=== PATIENT | female | born 1955 | race Hispanic/Latino ===

== ENCOUNTER → 2017-12-07 | Day surgery (SDC) | payer BC ==
[2017-12-04 14:59] LABS: BASOPHILS % 0.7 % (0.0-1.0); EOSINOPHILS # (AUTO) 0.2 (0.0-0.4); EOSINOPHILS % 3.7 % (0.0-6.0); HEMATOCRIT 34.1 % (34.2-44.1); HEMOGLOBIN 12.1 g/dL (12.0-16.0); LYMPHOCYTES # (AUTO) 1.2 (1.0-3.2); LYMPHOCYTES % 26.7 % (18.0-39.1); MEAN CORPUSCULAR HEMOGLOBIN 31.1 pg (28-32); MEAN CORPUSCULAR HGB CONC 35.5 g/dL (31-35); MEAN CORPUSCULAR VOLUME 87.7 fL (81-99); MONOCYTES # (AUTO) 0.4 (0.2-0.8); MONOCYTES % 8.3 % (4.4-11.3); NEUTROPHILS # (AUTO) 2.6 (2.1-6.9); NEUTROPHILS % 60.1 % (38.7-80.0); PLATELET COUNT 190 x10e3/uL (140-360); RED BLOOD COUNT 3.89 x10e6/uL (3.6-5.1); RED CELL DISTRIBUTION WIDTH 12.5 % (11.7-14.4)
[2017-12-04 15:10] LABS: INR 0.92; PROTHROMBIN TIME 13.2 seconds (11.9-14.5)
[2017-12-04 15:11] LABS: PARTIAL THROMBOPLASTIN TIME 25.8 seconds (23.8-35.5)
[2017-12-04 15:18] LABS: ALANINE AMINOTRANSFERASE 35 IU/L (0-55); ALBUMIN 4.5 g/dL (3.5-5.0); ALBUMIN/GLOBULIN RATIO 1.5 (0.8-2.0); ALKALINE PHOSPHATASE 50 IU/L (40-150); BLOOD UREA NITROGEN 15 mg/dL (7-26); BUN/CREATININE RATIO 16 (6-25); CALCIUM 10.1 mg/dL (8.4-10.2); CARBON DIOXIDE 27 mmol/L (22-29); CHLORIDE 104 mmol/L (98-107); CHOL/HDL RATIO 3.7 (3.0-3.6); CHOLESTEROL 171 MD/DL (0-199); CREATININE, SERUM 0.94 mg/dL (0.57-1.11); EST GLOMERULAR FILTRATION RATE > 60 ML/MIN (60-); GLUCOSE 106 mg/dL (74-118); HDL CHOLESTEROL 46 MG/DL (40-60); LDL CHOLESTEROL 96 MG/DL (60-130); SODIUM 142 mmol/L (136-145); TRIGLYCERIDES 143 MG/DL (0-149)
[2017-12-04 15:38] LABS: THYROID STIMULATING HORMONE 2.919 uIU/mL (0.350-4.940)
[~2017-12-07] VITALS: Ht 157.5 cm; Wt 61.2 kg
[2017-12-07] VITALS (21 sets, daily range): BP systolic 90–135; BP diastolic 62–83
[~2017-12-07] MED LIST: AMLODIPINE BESY10 MG PO; ASPIR 8181 MG PO; ASPIRIN 325 MG TAB ONE; ATROPINE SULFATE 0.1 MG/ML 10ML SYR ONE; CLOPIDOGREL75 MG PO; FENOFIBRATE145 MG PO; FENTANYL CITRATE/PF 100MCG/2 ML INJ ONE; FERROUS SULFAT325 MG PO; HEPARIN SOD/SOD CHLORIDE 2,000 ML ONE; HYZAAR 100-12.1 EACH PO; IOPAMIDOL 370 MG/ML 200 ML INFUS..BTL INJ ONE; ISOSORBIDE MONO30 MG PO; LEVOTHYROXINE112 MCG PO; LIDOCAINE HCL 2% LOCAL 20 ML VIAL ONE; METFORMIN HCL500 MG PO; MIDAZOLAM HCL 2 MG/2 ML VIAL ONE; NITROGLYCERIN0.4 MG SL; PRAVASTATIN SOD10 MG PO; PROPRANOLOL HCL40 MG PO; SODIUM CHLORIDE 0.9% 1000ML 1,000 ML ONE; TIZANIDINE HCL4 MG PO; ULTRAM50 MG PO; VITAMIN D1000 UNI1 PO
--- NOTE | 2017-12-09 00:20 | Operative Report ---
DATE OF PROCEDURE: PROCEDURE INDICATION: Chest pain, concerning for unstable angina. PROCEDURES PERFORMED: 1. Left heart catheterization. 2. Selective coronary angiography. 3. Right common femoral artery manual pressure hemostasis. PROCEDURE COMPLICATIONS: None. ESTIMATED BLOOD LOSS: Less than 15 mL. PROCEDURE SUMMARY: After consent was obtained, patient was prepped and draped in a sterile fashion and the right femoral site was locally infiltrated with 2% lidocaine. Using micropuncture, a 6-Slovak sheath was placed, and 6-Slovak JL4 and JR4 catheters were used for engagement of left main and right coronary artery. The following findings were noted: 1. LV pressure was 137/4 with end-diastolic pressure of 17. 2. The aortic pressure was 134/69. 3. No left ventriculogram was performed. 4. Left main large in caliber with luminal irregularities, gives an LAD and a circumflex. 5. The LAD has luminal irregularities. It gives 2 diagonals and multiple septal perforators. 6. The circumflex is large in caliber with 3 obtuse marginals and luminal irregularities. 7. The right coronary artery has luminal irregularities, is dominant, and gives 2 RV marginals and a terminal RPDA and RPLV. CONCLUSIONS: No evidence of obstructive coronary artery disease with only luminal irregularities noted throughout the coronary tree. RECOMMENDATIONS: Aggressive risk factor modification. Bed rest post sheath pull. IV fluids. Anticipate discharge later today. Job#: [id number]
== END | disposition home or self-care (01) ==
LOC: CATH LAB 08:22
PROVIDERS: ATTEND Internal Medicine Cardiovascular Disease
DX: I20.9 Angina pectoris, unspecified (principal); I10 Essential (primary) hypertension; E78.5 Hyperlipidemia, unspecified; E11.8 Type 2 diabetes mellitus with unspecified complications; Z01.810 Encounter for preprocedural cardiovascular examination; Z01.812 Encounter for preprocedural laboratory examination; Z79.82 Long term (current) use of aspirin; Z79.84 Long term (current) use of oral hypoglycemic drugs; Z79.02 Long term (current) use of antithrombotics/antiplatelets; Z82.3 Family history of stroke; Z82.49 Family history of ischemic heart disease and other diseases of the circulatory system
CPT/HCPCS: 36415; 80053; 80061; 83036; 84443; 85025; 85610; 85730; 93005; 93458; C1769; J2001; J2250; J7030; Q9967

== ENCOUNTER → 2023-10-26 | Outpatient (REF) | payer MEDICARE ==
[~2023-10-26] MED LIST changes: -ASPIRIN 325 MG TAB ONE; -ATROPINE SULFATE 0.1 MG/ML 10ML SYR ONE; -FENTANYL CITRATE/PF 100MCG/2 ML INJ ONE; -HEPARIN SOD/SOD CHLORIDE 2,000 ML ONE; -IOPAMIDOL 370 MG/ML 200 ML INFUS..BTL INJ ONE; -LIDOCAINE HCL 2% LOCAL 20 ML VIAL ONE; -MIDAZOLAM HCL 2 MG/2 ML VIAL ONE; -SODIUM CHLORIDE 0.9% 1000ML 1,000 ML ONE
== END ==
LOC: US 12:35
PROVIDERS: ATTEND Family Medicine
DX: R10.13 Epigastric pain (principal)
CPT/HCPCS: 76700